=== PATIENT | female | born 1940 | race Caucasian/White ===

== ENCOUNTER 2018-03-10 23:35 | Observation (INO) | payer MEDICARE ==
[2018-03-11] MEDS ORDERED: Ibuprofen 200 MG TAB ONE (01:45)
[2018-03-11 02:08] VITALS: BMI 37.3
[2018-03-11] MEDS ORDERED: Labetalol HCl 100 MG/20 ML VIAL SLOW IVP PRN (02:31)
[2018-03-11] MEDS ORDERED: Acetaminophen 325 MG TAB PO PRN (03:31)
[2018-03-11] MEDS: Levothyroxine Sodium 125 MCG TAB PO SCH (03:56)
[2018-03-11] MEDS ORDERED: Sodium Chloride 0.9% 1,000 ML IV SCH (04:30)
--- NOTE | 2018-03-11 04:48 | HP ---
CHIEF COMPLAINT: Dizziness. HISTORY OF PRESENT ILLNESS: The patient is a very pleasant 77-year-old female with a history of hypothyroidism and recent aneurysm repair, who presented to the hospital with complaints of dizziness. The patient stated that she was sleeping on her left side and she normally jumps out of bed, gets a little lightheaded at times. However, at this time when she did so, she started having significant amount of dizziness. The patient stated that she has had vertigo before. However, at this time she described it as "the room was spinning." The patient also stated that she was very nauseated and had some emesis. She also had some bouts of small diarrhea while she was having the nausea, vomiting. The patient stated that at this time she called the EMS and she was taking to [facility] where later on her room spinning improved. The patient at [place] had a CTA of the head and neck, which indicated a suboptimal visualization of the proximal portion of the common carotid arteries and the origin of the left vertebral artery, otherwise it was a negative test. PAST MEDICAL HISTORY: The patient has a history of hypothyroidism. PAST SURGICAL HISTORY: She has a history of tonsillectomy. Has a history of hysterectomy. She has also had a history of aneurysm repair. SOCIAL HISTORY: She denies any alcohol use. Denies any drug use. She was a former smoker, however, quit since her surgery. ALLERGIES: SHE HAS NO KNOWN DRUG ALLERGIES. MEDICATIONS: She normally takes ibuprofen 1 tab daily and she also takes levothyroxine 125 mcg oral daily. FAMILY HISTORY: Denies any family history of heart disease or cancer. REVIEW OF SYSTEMS: All negative except for the ones mentioned above in the HPI. PHYSICAL EXAMINATION: VITAL SIGNS: As of the following: The patient's temperature is 97.7, 71 heart rate, respirations are 20, 96% on room air, blood pressure 132/67. GENERAL: She is awake, alert, and oriented x3. Does not appear in any distress. CV: S1, S2 present. No murmurs, rubs, or gallops. LUNGS: Clear to auscultation. No rhonchi or wheezes noted. ABDOMEN: Soft and nontender. Bowel sounds are present x2. EXTREMITIES: No edema. Pedal pulses are present x2 bilaterally. Her right groin, she does have a large ecchymotic area, which according to her, has improved. NEUROVASCULAR: No focal deficits noted. Cerebellum test intact. SKIN: Besides the ecchymotic area of her right thigh area, no cuts, lesions, or bruises noted. HEENT: Normocephalic, atraumatic. No lymphadenopathy. Pupils are equal, reactive to light. LABORATORY RESULTS: As of the following; WBC of 7.1, hemoglobin of 12.5, hematocrit of 37.0, platelets of 172. Chemistry; sodium of 141, potassium of 4.1, BUN of 18, creatinine of 1.13. Total bilirubin was mildly elevated at 1.5. TSH was not done. She did have a CT of the chest that indicated chronic type lung findings are stable. No acute abnormalities noted. She also had a tiny nodule within the right middle lobe which was stable and a calcified granuloma within the left lower lobe. ASSESSMENT AND PLAN: The patient is a very pleasant 77-year-old female who presents to the hospital with dizziness. 1. Dizziness, rule out vertebrobasilar stroke versus vertigo. There was concern for possible vertebrobasilar stroke. Her CTA did indicate some abnormalities, was suboptimal and could not see the proximal portion of the common carotids, nor could they see the origins of the left vertebral artery. Neurology was consulted per ER. We will continue her home medications, aspirin. I believe, based on history most likely, she had vertigo. However, she also has a history of smoking and recently had a history of endovascular aneurysm repair with stent. 2. Smoking cessation. The patient has been educated on not smoking. She is aware and she states that she has already quit. She normally does not smoke very much either. 3. Hypothyroidism. We will continue her home medication. 4. Mild elevated creatinine. We will keep an eye on it. We will give her some gentle hydration, maybe 1 L and also I have advised her to hold off on the ibuprofen for now and may be just use some tramadol due to the contrast that she has received. 5. Deep venous thrombosis prophylaxis. We will put the patient on some SCDs. Job ID: [id number]
[2018-03-11] MEDS ORDERED: Aspirin Chewable 81 MG TAB PO SCH (09:00)
--- NOTE | 2018-03-11 09:50 | ULT ---
CAROTID DUPLEX ULTRASOUND: INDICATION: History of vertigo. COMPARISON: CTA of the head and neck dated 03/10/2018. FINDINGS: There is atherosclerotic plaque involving the proximal internal carotid arteries bilaterally. There is antegrade flow within both vertebral arteries. Peak systolic velocity in the right CCA was 84.8 cm/s and the left CCA was 95.8 cm/s. Peak systolic velocity in the right ICA was 72.5 cm/s. The peak systolic velocity in the left ICA wa s 76 cm/s. The right IC:CC ratio is 0.85 and on the left is 0.79. IMPRESSION: No hemodynamically significant stenosis. POS: HEATHER
[2018-03-11 10:35] LABS: Troponin I Less than 0.010 ng/mL (< 0.028)
[2018-03-11 13:16] LABS: Anion Gap 12 mmol/L (10-20); BUN (Urea Nitrogen) 17 mg/dL (9.8-20.1); Calc. Creatinine Clearance 56 mL/min (70-130); Calcium 9.1 mg/dL (7.8-10.44); Carbon Dioxide 27 mmol/L (23-31); Estimated GFR-MDRD 40; Glucose 161 mg/dL (83-110)
[2018-03-11 13:23] LABS: Chloride 104 mmol/L (98-107); Sodium 139 mmol/L (136-145)
--- NOTE | 2018-03-11 16:41 | MRI ---
MRI BRAIN NONCONTRAST: HISTORY: 77-year-old female with vertigo. Rule out CVA. FINDINGS: The ventricles are normal in size and configuration. There is no major intraaxial signal abnormality , restricted diffusion, midline shift or any other mass effect, recent intraaxial hemorrhage, or extr aaxial fluid collection. IMPRESSION: Normal. [email or web address][] POS: GOSIA
--- NOTE | 2018-03-11 17:59 | PDOC.EVN ---
Event Note - Event Note Event Note: Patient seen and examined earlier this morning. She was sitting up in bed with IV in place. No complaints at that time. She denied any chest pain, shortness of breath, headache or dizziness. MRI and echo ordered to rule out CVA, consult to Neuro services in place. Patient with QUIRINO on admission, repeat BMP will be obtained. Heart and lung sounds unremarkable. She recently had AA surgery in [place] and has follow up scheduled as outpatient. She will likely be discharged home once CVA/TIA ruled out
[2018-03-11] MEDS: traMADol HCl 50 MG TAB PO PRN (22:00)
[2018-03-12] MEDS ORDERED: Metoprolol Tartrate 5 MG/5 ML VIAL IVP SCH (03:30)
[2018-03-12] MEDS: Levothyroxine Sodium 125 MCG TAB PO SCH (05:11)
[2018-03-12 06:30] LABS: #Basophils 0.1 thou/uL (0.0-0.2); #Eosinphils 0.3 thou/uL (0.0-0.7); #Lymphocytes 1.3 thou/uL (1.20-3.40); #Monocytes 0.8 thou/uL (0.11-0.59); #Neutrophils 5.1 thou/uL (1.40-6.50); %Eosinophils 4.1 % (0.0-10.0); %Lymphocytes 16.6 % (21.0-51.0); %Monocytes 10.9 % (0.0-10.0); %Neutrophils 67.4 % (42.0-75.0); Hemoglobin 11.4 g/dL (12.0-16.0); Mean Corpuscular HGB CONC 32.7 g/dL (32.0-36.0); Mean Corpuscular Hemoglobin 32.6 pg (27.0-31.0); Mean Corpuscular Volume 99.6 fL (78.0-98.0); Mean Platelet Volume 8.5 fL (7.4-10.4); Platelet Count 163 thou/uL (130-400); RBC Distribution Width 12.6 % (11.5-14.5); Red Blood Cell (RBC) Count 3.51 mill/uL (4.20-5.40); White Blood Cell (WBC) Count 7.6 thou/uL (4.8-10.8)
[2018-03-12 06:41] LABS: Anion Gap 10 mmol/L (10-20); BUN (Urea Nitrogen) 21 mg/dL (9.8-20.1); Calc. Creatinine Clearance 62 mL/min (70-130); Calcium 8.6 mg/dL (7.8-10.44); Carbon Dioxide 25 mmol/L (23-31); Chloride 106 mmol/L (98-107); Estimated GFR-MDRD 44; Glucose 81 mg/dL (83-110); Potassium 4.4 mmol/L (3.5-5.1); Sodium 137 mmol/L (136-145)
[2018-03-12] MEDS: traMADol HCl 50 MG TAB PO PRN (10:01)
[2018-03-12] MEDS ORDERED: Morphine 10 MG/ML VIAL ONE (11:59)
[2018-03-12 12:11] VITALS: BP 136/65; TEMP 98.5
== END 2018-03-12 15:34 | disposition home or self-care (01) ==
LOC: ERS 23:35 → 2SW 03-11 01:53
PROVIDERS: ADMIT Internal Medicine; ATTEND Internal Medicine
DX: R42 Dizziness and giddiness (principal); E03.9 Hypothyroidism, unspecified; N17.9 Acute kidney failure, unspecified; I08.3 Combined rheumatic disorders of mitral, aortic and tricuspid valves; J44.9 Chronic obstructive pulmonary disease, unspecified; F17.290 Nicotine dependence, other tobacco product, uncomplicated; R19.7 Diarrhea, unspecified; Z79.899 Other long term (current) drug therapy; Z91.041 Radiographic dye allergy status; Z98.890 Other specified postprocedural states
CPT/HCPCS: 70551; 80048 ×2; 84443; 84484 ×2; 85025; 93306; 93880; 96360; 96361; 97116; 97139 ×3; 99285; 99406; G0378 ×2; 36415; J2270

== ENCOUNTER 2022-01-08 17:03 | Inpatient (IN) | payer MEDICARE, OTHER ==
[2022-01-08 17:57] LABS: ALT (SGPT) 31 U/L (8-55); AST (SGOT) 39 U/L (5-34); Alkaline Phosphatase 112 U/L (40-110); Anion Gap 12 mmol/L (10-20); BUN (Urea Nitrogen) 18 mg/dL (9.8-20.1); Bilirubin, Total 1.6 mg/dL (0.2-1.2); CK (CPK) 71 U/L (29-168); Calc. Creatinine Clearance 0 mL/min (70-130); Carbon Dioxide 25 mmol/L (23-31); Chloride 108 mmol/L (98-107); Estimated GFR 46; Globulin 3.3 g/dL (2.4-3.5); Glucose 105 mg/dL (83-110); Lipase 25 U/L (8-78); Potassium 4.1 mmol/L (3.5-5.1); Protein, Total 6.3 g/dL (5.8-8.1); Sodium 141 mmol/L (136-145)
[2022-01-08 18:04] LABS: #Eosinphils 0.1 thou/uL (0.0-0.7); #Lymphocytes 0.9 thou/uL (1.20-3.40); #Monocytes 0.9 thou/uL (0.11-0.59); #Neutrophils 5.7 thou/uL (1.40-6.50); %Basophils 0.5 % (0.0-1.0); %Eosinophils 1.7 % (0.0-10.0); %Lymphocytes 11.5 % (21.0-51.0); %Monocytes 11.8 % (0.0-10.0); %Neutrophils 74.6 % (42.0-75.0); Hemoglobin 13.6 g/dL (12.0-16.0); MDiff Complete? YES; Macrocytosis SLIGHT = 6-15 cells (100X) (0-5/hpf); Mean Corpuscular HGB CONC 33.9 g/dL (32.0-36.0); Mean Corpuscular Hemoglobin 36.2 pg (27.0-31.0); Mean Platelet Volume 9.2 fL (7.4-10.4); Platelet Count 108 10x3/uL (130-400); Platelet Morphology Comment Appears Decreased; RBC Distribution Width 12.8 % (11.5-14.5); Red Blood Cell (RBC) Count 3.77 mill/uL (4.20-5.40); White Blood Cell (WBC) Count 7.6 10x3/uL (4.8-10.8)
[2022-01-08 21:18] LABS: Bilirubin Negative (Negative); Blood, Urine Negative (Negative); Clarity Clear (Clear); Glucose, Urine (Dipstick) Normal (Negative); Ketone, Urine Negative (Negative); Leukocyte Negative Leu/uL (Negative); Nitrite Negative (Negative); Protein, Urine (Dipstick) 20 mg/dL (Neg-Trace); Specific Gravity, Urine 1.028 (1.002-1.036); Urobilinogen 3 mg/dL (Less than 2); pH, Urine 5.5 (5.0-9.0)
[2022-01-08 23:11] VITALS: BMI 47.7
[2022-01-09] MEDS ORDERED: Furosemide 40 MG/4 ML VIAL SLOW IVP SCH (00:14)
[2022-01-09 00:15] LABS: SARS-CoV-2 NAA Rapid Test Not Detected (NotDetected)
[2022-01-09] MEDS ORDERED: Acetaminophen 650 MG Suppository PR PRN (00:20)
[2022-01-09] MEDS ORDERED: Ondansetron PF 4 MG/2 ML Vial IVP PRN (00:20)
[2022-01-09] MEDS ORDERED: Bisacodyl 10 MG SUPP PR PRN (00:20)
[2022-01-09] MEDS ORDERED: Bisacodyl 5 MG TAB PO PRN (00:20)
[2022-01-09] MEDS ORDERED: Senokot S 8.6-50 MG TAB PO PRN (00:20)
[2022-01-09] MEDS ORDERED: Ondansetron ODT 4 MG TAB PO PRN (00:20)
[2022-01-09] MEDS ORDERED: Acetaminophen 325 MG TAB PO PRN (00:20)
[2022-01-09] MEDS ORDERED: Nystatin Cream 30 GM TUBE TOP SCH (00:30)
[2022-01-09] MEDS ORDERED: Furosemide 40 MG/4 ML VIAL ONE ×2 (00:32→05:47)
[2022-01-09 00:56] LABS: Troponin I 0.013 ng/mL (< 0.028)
[2022-01-09 04:42] LABS: #Eosinphils 0.1 thou/uL (0.0-0.7); #Lymphocytes 0.8 thou/uL (1.20-3.40); #Monocytes 0.9 thou/uL (0.11-0.59); #Neutrophils 5.9 thou/uL (1.40-6.50); %Basophils 0.5 % (0.0-1.0); %Monocytes 11.9 % (0.0-10.0); %Neutrophils 76.6 % (42.0-75.0); Hemoglobin 13.2 g/dL (12.0-16.0); Mean Corpuscular HGB CONC 32.6 g/dL (32.0-36.0); Mean Corpuscular Hemoglobin 34.8 pg (27.0-31.0); Mean Platelet Volume 9.4 fL (7.4-10.4); Platelet Count 113 10x3/uL (130-400); RBC Distribution Width 12.7 % (11.5-14.5); Red Blood Cell (RBC) Count 3.79 mill/uL (4.20-5.40); White Blood Cell (WBC) Count 7.7 10x3/uL (4.8-10.8)
[2022-01-09 04:58] LABS: Magnesium 1.7 mg/dL (1.6-2.6)
[2022-01-09] MEDS ORDERED: traMADol HCl 50 MG TAB ONE (06:11)
[2022-01-09] MEDS ORDERED: traMADol HCl 50 MG TAB PO SCH (06:15)
[2022-01-09] MEDS: Furosemide 40 MG/4 ML VIAL SLOW IVP SCH ×2 (06:30→14:34)
[2022-01-09] MEDS: Levothyroxine Sodium 125 MCG TAB PO SCH (06:42)
[2022-01-09] MEDS: Guaifenesin DM 100-10/5 ML UDCUP PO PRN (06:42)
[2022-01-09] MEDS ORDERED: Aspirin Chewable 81 MG TAB ONE (08:33)
[2022-01-09] MEDS: Aspirin Chewable 81 MG TAB PO SCH (08:49)
[2022-01-09] MEDS ORDERED: Lisinopril 2.5 MG TAB PO SCH (09:00)
[2022-01-09] MEDS ORDERED: Acetaminophen 325 MG TAB ONE (09:02)
[2022-01-09] MEDS ORDERED: Heparin 10,000 UNITS/ 10 ML VIAL ONE (09:03)
[2022-01-09] MEDS ORDERED: Metoprolol Tartrate 25 MG TAB ONE (09:04)
[2022-01-09] MEDS: Heparin 5,000 UNITS/ML VIAL SC SCH ×2 (09:07→21:54)
[2022-01-09] MEDS ORDERED: Ibuprofen 200 MG TAB PO PRN (09:41)
[2022-01-09] MEDS ORDERED: Ibuprofen 200 MG TAB ONE (10:41)
[2022-01-09 13:35] LABS: Anion Gap 13 mmol/L (10-20); BUN (Urea Nitrogen) 19 mg/dL (9.8-20.1); Calc. Creatinine Clearance 58 mL/min (70-130); Calcium 8.2 mg/dL (7.8-10.44); Carbon Dioxide 25 mmol/L (23-31); Chloride 107 mmol/L (98-107); Estimated GFR 37; Glucose 93 mg/dL (83-110); Magnesium 1.8 mg/dL (1.6-2.6); Potassium 3.5 mmol/L (3.5-5.1); Sodium 141 mmol/L (136-145)
[2022-01-09] MEDS: Nystatin Cream 30 GM TUBE TOP SCH ×3 (13:56→21:54)
[2022-01-09] MEDS: traMADol HCl 50 MG TAB PO PRN ×2 (14:33→22:03)
[2022-01-09] MEDS: Mometasone 200 MCG/Formoterol 5 MCG 120 PUFF INHALER INH SCH (18:41)
[2022-01-09 18:58] LABS: Free T4 (Free Thyroxine) 1.03 ng/dL (0.70-1.48); Thyroid Stimulating Hormone 12.8174 uIU/mL (0.35-4.94)
[2022-01-09] MEDS ORDERED: HYDROcodone/Acetaminophen 5/325 mg Tablet PO PRN (20:26)
[2022-01-09 20:40] LABS: INR-International Normal Ratio 1.2; PTT 29.5 sec (22.9-36.1); Prothrombin Time 15.8 sec (12.0-14.7)
[2022-01-09] MEDS: Cyanocobalamin (Vitamin B-12) 1,000 MCG TAB PO SCH (21:54)
[2022-01-09] MEDS: Multivitamin W/ Minerals 1 TAB PO SCH (21:54)
[2022-01-09] MEDS: Ascorbic Acid 500 mg Chewable Tablet PO SCH (21:54)
[2022-01-10 04:32] LABS: Anion Gap 14 mmol/L (10-20); BUN (Urea Nitrogen) 25 mg/dL (9.8-20.1); Calc. Creatinine Clearance 56 mL/min (70-130); Calcium 8.2 mg/dL (7.8-10.44); Carbon Dioxide 24 mmol/L (23-31); Chloride 105 mmol/L (98-107); Estimated GFR 36; Glucose 100 mg/dL (83-110); Potassium 3.6 mmol/L (3.5-5.1); Sodium 139 mmol/L (136-145)
[2022-01-10] MEDS: traMADol HCl 50 MG TAB PO PRN ×2 (04:33→20:07)
[2022-01-10] MEDS: Furosemide 40 MG/4 ML VIAL SLOW IVP SCH ×2 (06:42→13:20)
[2022-01-10] MEDS: Levothyroxine Sodium 125 MCG TAB PO SCH (06:43)
[2022-01-10] MEDS: Mometasone 200 MCG/Formoterol 5 MCG 120 PUFF INHALER INH SCH ×2 (07:32→18:25)
[2022-01-10] MEDS: Heparin 5,000 UNITS/ML VIAL SC SCH ×2 (09:00→20:02)
[2022-01-10] MEDS: Nystatin Cream 30 GM TUBE TOP SCH ×3 (09:01→20:06)
[2022-01-10] MEDS: Aspirin Chewable 81 MG TAB PO SCH (09:01)
[2022-01-10 12:27] LABS: HBSAg Index 0.31 S/CO (0-0.99); HIV (1/2) Antibody/Antigen Non-Reactive (NonReactive); HIV 1/2 INDEX 0.45 S/CO (<1.00); Hep B Surf Ag Non-Reactive S/CO (NonReactive); Hep C IgG Ab Non-Reactive (NonReactive); Hep C Index 0.18 S/CO (0-0.79)
[2022-01-10 13:19] LABS: HBSAB Concentration 4047.38 mIU/mL; Hep B Surf AB Reactive (NonReactive)
[2022-01-10 13:21] LABS: Syphilis Antibody Nonreactive (Nonreactive); Syphilis Antibody Index 0.13 S/CO (<1.00 Non-Reactive)
[2022-01-10] MEDS: Cyanocobalamin (Vitamin B-12) 1,000 MCG TAB PO SCH (20:05)
[2022-01-10] MEDS: Multivitamin W/ Minerals 1 TAB PO SCH (20:05)
[2022-01-10] MEDS: Ascorbic Acid 500 mg Chewable Tablet PO SCH (20:05)
[2022-01-10] MEDS: Guaifenesin DM 100-10/5 ML UDCUP PO PRN (20:12)
[2022-01-10] MEDS ORDERED: HYDROcodone/Acetaminophen 5/325 mg Tablet PO SCH (22:15)
[2022-01-11] MEDS ORDERED: Lidocaine 5% Patch TD SCH ×2 (02:30→23:59)
[2022-01-11] MEDS ORDERED: hydrOXYzine 25 MG TAB PO SCH (02:30)
[2022-01-11] MEDS: traMADol HCl 50 MG TAB PO PRN (03:00)
[2022-01-11 05:16] LABS: #Eosinphils 0.2 thou/uL (0.0-0.7); #Lymphocytes 0.7 thou/uL (1.20-3.40); #Monocytes 0.8 thou/uL (0.11-0.59); #Neutrophils 5.3 thou/uL (1.40-6.50); %Basophils 0.7 % (0.0-1.0); %Eosinophils 2.4 % (0.0-10.0); %Lymphocytes 10.5 % (21.0-51.0); %Monocytes 11.4 % (0.0-10.0); %Neutrophils 75.1 % (42.0-75.0); Hemoglobin 13.1 g/dL (12.0-16.0); Mean Corpuscular HGB CONC 33.2 g/dL (32.0-36.0); Mean Platelet Volume 9.3 fL (7.4-10.4); Platelet Count 114 10x3/uL (130-400); RBC Distribution Width 12.7 % (11.5-14.5); Red Blood Cell (RBC) Count 3.74 mill/uL (4.20-5.40)
[2022-01-11 05:29] LABS: ALT (SGPT) 25 U/L (8-55); AST (SGOT) 31 U/L (5-34); Albumin 2.8 g/dL (3.4-4.8); Alkaline Phosphatase 100 U/L (40-110); Anion Gap 10 mmol/L (10-20); BUN (Urea Nitrogen) 25 mg/dL (9.8-20.1); Bilirubin, Total 1.6 mg/dL (0.2-1.2); Calc. Creatinine Clearance 57 mL/min (70-130); Calcium 8.3 mg/dL (7.8-10.44); Carbon Dioxide 27 mmol/L (23-31); Chloride 101 mmol/L (98-107); Estimated GFR 37; Globulin 3.8 g/dL (2.4-3.5); Glucose 99 mg/dL (83-110); Potassium 3.4 mmol/L (3.5-5.1); Protein, Total 6.6 g/dL (5.8-8.1); Sodium 135 mmol/L (136-145)
[2022-01-11] MEDS: Levothyroxine Sodium 125 MCG TAB PO SCH (06:40)
[2022-01-11] MEDS: Mometasone 200 MCG/Formoterol 5 MCG 120 PUFF INHALER INH SCH ×2 (07:43→20:04)
[2022-01-11] MEDS ORDERED: ALPRAZolam 0.25 MG TAB PO SCH (08:15)
[2022-01-11] MEDS: Sertraline 25 MG TAB PO SCH (08:53)
[2022-01-11] MEDS: Aspirin Chewable 81 MG TAB PO SCH (08:54)
[2022-01-11] MEDS: Nystatin Cream 30 GM TUBE TOP SCH ×3 (08:54→21:19)
[2022-01-11] MEDS ORDERED: hydrOXYzine 25 MG TAB PO PRN (09:14)
[2022-01-11] MEDS ORDERED: Potassium Chloride 20 MEQ TAB PO SCH (09:15)
[2022-01-11] MEDS ORDERED: Lidocaine 2% PF 5 ML VIAL ONE (10:35)
[2022-01-11] MEDS ORDERED: Sodium Bicarbonate 2.5 MEQ/5 ML VIAL ONE (10:35)
[2022-01-11] MEDS ORDERED: Diclofenac 1% 100 GM GEL TP PRN (10:48)
[2022-01-11] MEDS: Acetaminophen 325 MG TAB PO PRN ×2 (13:15→21:17)
[2022-01-11 13:37] LABS: RBC Count-Automated (BF) 4902 /cu.mm; WBC/Nucleated-Auto (BF) 1047 /cu.mm
[2022-01-11 13:41] LABS: BF Color Yellow; Body Fluid Source Ascites Body Fluid; Clarity Hazy (Clear); Tube # EDTA
[2022-01-11 14:19] LABS: BF Segmented Neutrophils 32 %; Cell Count Non Hematic 50 %; Lymphocytes 18 %
[2022-01-11] MEDS: Guaifenesin DM 100-10/5 ML UDCUP PO PRN (14:29)
[2022-01-11] MEDS ORDERED: Transdermal Patch Removal TOP SCH (14:30)
[2022-01-11] MEDS: cefTRIAXone\\ROCEPHIN 2 GM in Sodium Chloride 0.9% 100 ML IVPB SCH (17:59)
[2022-01-11] MEDS: Cyanocobalamin (Vitamin B-12) 1,000 MCG TAB PO SCH (21:17)
[2022-01-11] MEDS: Multivitamin W/ Minerals 1 TAB PO SCH (21:17)
[2022-01-11] MEDS: Ascorbic Acid 500 mg Chewable Tablet PO SCH (21:17)
[2022-01-12 04:04] LABS: #Eosinphils 0.2 thou/uL (0.0-0.7); #Lymphocytes 0.8 thou/uL (1.20-3.40); #Monocytes 0.6 thou/uL (0.11-0.59); #Neutrophils 4.8 thou/uL (1.40-6.50); %Basophils 0.1 % (0.0-1.0); %Eosinophils 2.4 % (0.0-10.0); %Lymphocytes 12.6 % (21.0-51.0); %Monocytes 9.6 % (0.0-10.0); %Neutrophils 75.3 % (42.0-75.0); Hemoglobin 13.5 g/dL (12.0-16.0); Mean Corpuscular HGB CONC 33.2 g/dL (32.0-36.0); Mean Corpuscular Hemoglobin 35.3 pg (27.0-31.0); Mean Platelet Volume 9.2 fL (7.4-10.4); Platelet Count 124 10x3/uL (130-400); RBC Distribution Width 12.7 % (11.5-14.5); Red Blood Cell (RBC) Count 3.81 mill/uL (4.20-5.40); White Blood Cell (WBC) Count 6.4 10x3/uL (4.8-10.8)
[2022-01-12 04:25] LABS: Anion Gap 13 mmol/L (10-20); BUN (Urea Nitrogen) 25 mg/dL (9.8-20.1); Carbon Dioxide 26 mmol/L (23-31); Chloride 101 mmol/L (98-107); Potassium 4.1 mmol/L (3.5-5.1); Sodium 136 mmol/L (136-145)
[2022-01-12 04:26] LABS: ALT (SGPT) 26 U/L (8-55); AST (SGOT) 31 U/L (5-34); Albumin 2.9 g/dL (3.4-4.8); Alkaline Phosphatase 104 U/L (40-110); Bilirubin, Total 1.3 mg/dL (0.2-1.2); Calc. Creatinine Clearance 65 mL/min (70-130); Calcium 8.3 mg/dL (7.8-10.44); Estimated GFR 44; Globulin 3.8 g/dL (2.4-3.5); Glucose 95 mg/dL (83-110); Iron 50 ug/dL (50-170); Iron Binding Capacity, Total 241 mcg/dL (265-497); Protein, Total 6.7 g/dL (5.8-8.1)
[2022-01-12] MEDS: Levothyroxine Sodium 125 MCG TAB PO SCH (05:53)
[2022-01-12] MEDS: Mometasone 200 MCG/Formoterol 5 MCG 120 PUFF INHALER INH SCH ×2 (06:35→19:58)
[2022-01-12] MEDS: Aspirin Chewable 81 MG TAB PO SCH (09:41)
[2022-01-12] MEDS: Guaifenesin DM 100-10/5 ML UDCUP PO PRN (09:41)
[2022-01-12] MEDS: Sertraline 25 MG TAB PO SCH (09:43)
[2022-01-12] MEDS ORDERED: Furosemide 20 MG TAB PO SCH (09:45)
[2022-01-12] MEDS ORDERED: Spironolactone 25 MG TAB PO SCH (10:00)
[2022-01-12] MEDS ORDERED: Enoxaparin Sodium 40 MG/0.4 ML SYRINGE SC SCH (10:00)
[2022-01-12] MEDS ORDERED: Transdermal Patch Removal TOP PRN (11:12)
[2022-01-12] MEDS ORDERED: Transdermal Patch Removal TOP SCH (12:00)
[2022-01-12] MEDS ORDERED: FLU VACC QS2022-23(65YR UP)/PF 240 MCG/0.7 ML SYRINGE IM ONE (14:30)
[2022-01-12] MEDS: Nystatin Cream 30 GM TUBE TOP SCH ×3 (17:26→20:24)
[2022-01-12] MEDS: cefTRIAXone\\ROCEPHIN 2 GM in Sodium Chloride 0.9% 100 ML IVPB SCH (17:27)
[2022-01-12] MEDS: Multivitamin W/ Minerals 1 TAB PO SCH (20:23)
[2022-01-12] MEDS: Ascorbic Acid 500 mg Chewable Tablet PO SCH (20:23)
[2022-01-12] MEDS: Cyanocobalamin (Vitamin B-12) 1,000 MCG TAB PO SCH (20:23)
[2022-01-12] MEDS: DULoxetine 30 MG CAP PO SCH (20:23)
[2022-01-12] MEDS: Acetaminophen 325 MG TAB PO PRN (21:40)
[2022-01-13 04:28] LABS: #Eosinphils 0.1 thou/uL (0.0-0.7); #Lymphocytes 0.8 thou/uL (1.20-3.40); #Monocytes 0.7 thou/uL (0.11-0.59); #Neutrophils 4.1 thou/uL (1.40-6.50); %Basophils 0.2 % (0.0-1.0); %Eosinophils 1.6 % (0.0-10.0); %Lymphocytes 13.5 % (21.0-51.0); %Monocytes 12.3 % (0.0-10.0); %Neutrophils 72.4 % (42.0-75.0); ALT (SGPT) 30 U/L (8-55); AST (SGOT) 39 U/L (5-34); Albumin 2.8 g/dL (3.4-4.8); Alkaline Phosphatase 123 U/L (40-110); Anion Gap 12 mmol/L (10-20); BUN (Urea Nitrogen) 23 mg/dL (9.8-20.1); Bilirubin, Total 0.9 mg/dL (0.2-1.2); Calc. Creatinine Clearance 62 mL/min (70-130); Calcium 8.4 mg/dL (7.8-10.44); Carbon Dioxide 26 mmol/L (23-31); Chloride 103 mmol/L (98-107); Estimated GFR 46; Globulin 3.8 g/dL (2.4-3.5); Glucose 110 mg/dL (83-110); Mean Corpuscular HGB CONC 32.4 g/dL (32.0-36.0); Mean Corpuscular Hemoglobin 34.4 pg (27.0-31.0); Mean Platelet Volume 9.2 fL (7.4-10.4); Platelet Count 115 10x3/uL (130-400); Protein, Total 6.6 g/dL (5.8-8.1); RBC Distribution Width 12.6 % (11.5-14.5); Red Blood Cell (RBC) Count 3.77 mill/uL (4.20-5.40); Sodium 137 mmol/L (136-145); White Blood Cell (WBC) Count 5.7 10x3/uL (4.8-10.8)
[2022-01-13] MEDS: Levothyroxine Sodium 125 MCG TAB PO SCH (05:58)
[2022-01-13] MEDS: Mometasone 200 MCG/Formoterol 5 MCG 120 PUFF INHALER INH SCH ×2 (07:59→18:33)
[2022-01-13] MEDS ORDERED: Spironolactone 25 MG TAB PO SCH (08:00)
[2022-01-13] MEDS ORDERED: Furosemide 20 MG TAB PO SCH ×2 (09:00)
[2022-01-13] MEDS: Enoxaparin Sodium 40 MG/0.4 ML SYRINGE SC SCH (10:17)
[2022-01-13] MEDS: Aspirin Chewable 81 MG TAB PO SCH (10:17)
[2022-01-13] MEDS: Lidocaine 5% Patch TD SCH (10:18)
[2022-01-13] MEDS: Acetaminophen 325 MG TAB PO PRN ×2 (10:18→20:30)
[2022-01-13] MEDS: Nystatin Cream 30 GM TUBE TOP SCH ×3 (10:19→20:21)
[2022-01-13] MEDS: cefTRIAXone\\ROCEPHIN 2 GM in Sodium Chloride 0.9% 100 ML IVPB SCH (16:53)
[2022-01-13] MEDS: Ascorbic Acid 500 mg Chewable Tablet PO SCH (20:19)
[2022-01-13] MEDS: DULoxetine 30 MG CAP PO SCH (20:19)
[2022-01-13] MEDS: Multivitamin W/ Minerals 1 TAB PO SCH (20:19)
[2022-01-13] MEDS: Cyanocobalamin (Vitamin B-12) 1,000 MCG TAB PO SCH (20:19)
[2022-01-13] MEDS: Transdermal Patch Removal TOP SCH (20:21)
[2022-01-13] MEDS ORDERED: Transdermal Patch Removal TOP SCH (21:00)
[2022-01-14 04:06] LABS: #Eosinphils 0.1 thou/uL (0.0-0.7); #Lymphocytes 0.9 thou/uL (1.20-3.40); #Monocytes 0.8 thou/uL (0.11-0.59); #Neutrophils 4.6 thou/uL (1.40-6.50); %Basophils 0.5 % (0.0-1.0); %Eosinophils 2.2 % (0.0-10.0); %Lymphocytes 13.3 % (21.0-51.0); %Monocytes 12.8 % (0.0-10.0); %Neutrophils 71.1 % (42.0-75.0); Hemoglobin 13.4 g/dL (12.0-16.0); Mean Corpuscular HGB CONC 35.1 g/dL (32.0-36.0); Mean Corpuscular Hemoglobin 37.4 pg (27.0-31.0); Mean Platelet Volume 8.7 fL (7.4-10.4); Platelet Count 110 10x3/uL (130-400); RBC Distribution Width 12.5 % (11.5-14.5); Red Blood Cell (RBC) Count 3.58 mill/uL (4.20-5.40); White Blood Cell (WBC) Count 6.5 10x3/uL (4.8-10.8)
[2022-01-14 04:29] LABS: Anion Gap 11 mmol/L (10-20); BUN (Urea Nitrogen) 23 mg/dL (9.8-20.1); Calc. Creatinine Clearance 62 mL/min (70-130); Carbon Dioxide 26 mmol/L (23-31); Chloride 102 mmol/L (98-107); Potassium 4.1 mmol/L (3.5-5.1); Sodium 135 mmol/L (136-145)
[2022-01-14 04:30] LABS: ALT (SGPT) 35 U/L (8-55); AST (SGOT) 44 U/L (5-34); Albumin 2.9 g/dL (3.4-4.8); Alkaline Phosphatase 138 U/L (40-110); Bilirubin, Total 0.8 mg/dL (0.2-1.2); Calcium 8.5 mg/dL (7.8-10.44); Estimated GFR 42; Globulin 3.8 g/dL (2.4-3.5); Glucose 99 mg/dL (83-110); Protein, Total 6.7 g/dL (5.8-8.1)
[2022-01-14] MEDS: Levothyroxine Sodium 125 MCG TAB PO SCH (05:58)
[2022-01-14] MEDS: Mometasone 200 MCG/Formoterol 5 MCG 120 PUFF INHALER INH SCH ×2 (07:23→19:13)
[2022-01-14] MEDS: Aspirin Chewable 81 MG TAB PO SCH (08:53)
[2022-01-14] MEDS: Spironolactone 100 MG TAB PO SCH (08:55)
[2022-01-14] MEDS: Furosemide 40 MG TAB PO SCH ×2 (08:55→14:44)
[2022-01-14] MEDS: Enoxaparin Sodium 40 MG/0.4 ML SYRINGE SC SCH ×3 (08:56→14:52)
[2022-01-14] MEDS: Lidocaine 5% Patch TD SCH (08:58)
[2022-01-14] MEDS: Nystatin Cream 30 GM TUBE TOP SCH ×3 (09:01→22:10)
[2022-01-14] MEDS: cefTRIAXone\\ROCEPHIN 2 GM in Sodium Chloride 0.9% 100 ML IVPB SCH (18:05)
[2022-01-14] MEDS: Multivitamin W/ Minerals 1 TAB PO SCH (22:05)
[2022-01-14] MEDS: Cyanocobalamin (Vitamin B-12) 1,000 MCG TAB PO SCH (22:05)
[2022-01-14] MEDS: Ascorbic Acid 500 mg Chewable Tablet PO SCH (22:05)
[2022-01-14] MEDS: DULoxetine 30 MG CAP PO SCH (22:06)
[2022-01-14] MEDS: Transdermal Patch Removal TOP SCH (22:10)
[2022-01-14] MEDS: Acetaminophen 325 MG TAB PO PRN (22:36)
[2022-01-15 05:15] LABS: #Eosinphils 0.2 thou/uL (0.0-0.7); #Lymphocytes 0.7 thou/uL (1.20-3.40); #Monocytes 0.6 thou/uL (0.11-0.59); #Neutrophils 4.6 thou/uL (1.40-6.50); %Basophils 0.4 % (0.0-1.0); %Lymphocytes 11.4 % (21.0-51.0); %Monocytes 9.4 % (0.0-10.0); %Neutrophils 75.9 % (42.0-75.0); Hemoglobin 13.3 g/dL (12.0-16.0); Mean Corpuscular Hemoglobin 35.1 pg (27.0-31.0); Mean Platelet Volume 9.3 fL (7.4-10.4); Platelet Count 121 10x3/uL (130-400); RBC Distribution Width 12.6 % (11.5-14.5); White Blood Cell (WBC) Count 6.1 10x3/uL (4.8-10.8)
[2022-01-15 05:30] LABS: ALT (SGPT) 37 U/L (8-55); AST (SGOT) 53 U/L (5-34); Alkaline Phosphatase 139 U/L (40-110); Anion Gap 15 mmol/L (10-20); BUN (Urea Nitrogen) 24 mg/dL (9.8-20.1); Bilirubin, Total 0.7 mg/dL (0.2-1.2); Calc. Creatinine Clearance 60 mL/min (70-130); Calcium 8.4 mg/dL (7.8-10.44); Carbon Dioxide 25 mmol/L (23-31); Chloride 101 mmol/L (98-107); Estimated GFR 41; Globulin 4.2 g/dL (2.4-3.5); Glucose 122 mg/dL (83-110); Potassium 4.5 mmol/L (3.5-5.1); Protein, Total 7.2 g/dL (5.8-8.1); Sodium 136 mmol/L (136-145)
[2022-01-15] MEDS: Levothyroxine Sodium 125 MCG TAB PO SCH (05:58)
[2022-01-15] MEDS: Mometasone 200 MCG/Formoterol 5 MCG 120 PUFF INHALER INH SCH (07:19)
[2022-01-15] MEDS: Nystatin Cream 30 GM TUBE TOP SCH ×2 (09:09→14:31)
[2022-01-15] MEDS: Aspirin Chewable 81 MG TAB PO SCH (09:09)
[2022-01-15] MEDS: Spironolactone 100 MG TAB PO SCH (09:09)
[2022-01-15] MEDS: Enoxaparin Sodium 40 MG/0.4 ML SYRINGE SC SCH (09:09)
[2022-01-15] MEDS: Furosemide 40 MG TAB PO SCH ×2 (09:09→14:31)
[2022-01-15] MEDS: Lidocaine 5% Patch TD SCH (09:09)
[2022-01-15] MEDS: Acetaminophen 325 MG TAB PO PRN (09:14)
[2022-01-15] MEDS ORDERED: cefTRIAXone\\ROCEPHIN 2 GM in Sodium Chloride 0.9% 100 ML IVPB SCH (14:00)
[2022-01-15 16:35] VITALS: BP 126/53; TEMP 98
[2022-01-17 13:50] LABS: ANA Symphony (Qualitative) Negative (Negative); ANA Symphony (Quantitative) 0.4 Ratio (< 0.7 Negative); EliA Vaculitis New Method **** NEW METHOD ****; Mitochondrial Ab 1.4 U/mL (<4 Negative); dsDNA IgG Antibody 3.5 IU/mL (<10 Negative)
== END 2022-01-15 18:25 | disposition home or self-care (01) | DRG 432 ==
LOC: ERS 17:03 → ERHOLD 18:40 → 2NO 01-09 12:01
PROVIDERS: ADMIT Internal Medicine; ATTEND Internal Medicine
PROC: 0W9G3ZZ Drainage of Peritoneal Cavity, Percutaneous Approach (ICD-10-PCS; principal; 2022-01-11)
DX: K74.60 Unspecified cirrhosis of liver (principal); I50.33 Acute on chronic diastolic (congestive) heart failure; N17.9 Acute kidney failure, unspecified; Z68.42 Body mass index [BMI] 45.0-49.9, adult; R18.8 Other ascites; I11.0 Hypertensive heart disease with heart failure; E03.9 Hypothyroidism, unspecified; I25.10 Atherosclerotic heart disease of native coronary artery without angina pectoris; E53.8 Deficiency of other specified B group vitamins; D69.6 Thrombocytopenia, unspecified; F17.210 Nicotine dependence, cigarettes, uncomplicated; I35.0 Nonrheumatic aortic (valve) stenosis; E66.9 Obesity, unspecified; Z95.5 Presence of coronary angioplasty implant and graft; Z91.041 Radiographic dye allergy status; Z79.890 Hormone replacement therapy; Z79.899 Other long term (current) drug therapy; Z90.710 Acquired absence of both cervix and uterus; Z90.09 Acquired absence of other part of head and neck; Z91.14 Patient's other noncompliance with medication regimen
CPT/HCPCS: 36415; 49083; 51701; 71045; 76705; 80048; 80053; 81003; 82042; 82105; 82550; 82607; 82728; 82945; 83516; 83540; 83550; 83615; 83690; 83735; 83880; 84157; 84439; 84443; 84481; 84484; 85025; 85060; 85610; 85730; 86015; 86038; 86225; 86706; 86780; 86803; 87070; 87205; 87340; 87389; 88112; 88305; 89051; 93005; 93306; 94640; 94664; J0696; J1644; J1650; J1940; J2001; J3490; J7620